=== PATIENT | male | born 1980 | race Caucasian/White ===

== ENCOUNTER 2018-08-15 23:07 | Emergency (ER) | payer BC ==
--- NOTE | 2018-08-16 00:14 | EDM.PDOC ---
ED HPI GENERAL MEDICAL PROBLEM - General Chief Complaint: Respiratory Problem Stated Complaint: SHORTNESS OF BREATH Time Seen by Provider: 08/16/18 00:04 - History of Present Illness INITIAL COMMENTS - FREE TEXT/NARRATIVE: HISTORY AND PHYSICAL: History of present illness: The patient is a 38-year-old male who says that he does Vape and has no cardiac or pulmonary history and no GI history who presents with a one and one half week history of episodic shortness of breath. He says that he does not have a cough fever chills chest pain or abdominal pain but says that these episodes usually are triggered when he is eating food. Is not any particular food but it only happens after he eats. He does not cough up any phlegm and he was seen in the clinic on , 2 days ago, and had a full lab workup including CBC CMP TSH and troponin and a chest x-ray all of which was negative. The patient was started on started on medications and did relate to the provider at the time that he did have a history of anxiety when he was in his teens and thought maybe this was anxiety driven. An episode happened this evening very similar to all prior ones and he said he took an Ativan and on arrival here he was tachycardic and was having symptoms but in the weight to be seen by me symptoms have completely resolved. Review of systems: As per history of present illness and below otherwise all systems reviewed and negative. Past medical history: As per history of present illness and as reviewed below otherwise noncontributory. Surgical history: As per history of present illness and as reviewed below otherwise noncontributory. Social history: No reported history of drug or alcohol abuse. Family history: As per history of present illness and as reviewed below otherwise noncontributory. Physical exam: General: Well-developed well-nourished mildly overweight man who is nontoxic and vital signs are noted by me. HEENT: Atraumatic, normocephalic, negative for conjunctival pallor or scleral icterus, mucous membranes moist, throat clear, neck supple, nontender, trachea midline. Lungs: Clear to auscultation, breath sounds equal bilaterally, chest nontender. Heart: S1S2, regular rate and rhythm on my evaluation and no overt murmurs, negative for clicks, rubs, or JVD. Abdomen: Soft, nondistended, a minimal amount of epigastric tenderness on deep palpation without rebound or guarding. Negative for masses or hepatosplenomegaly. Negative for costovertebral tenderness. Pelvis: Stable nontender. Genitourinary: Deferred. Rectal: Deferred. Extremities: Atraumatic, negative for cords or calf pain. Neurovascular unremarkable. Neuro: Awake, alert, oriented. Cranial nerves II through XII unremarkable. Cerebellum unremarkable. Motor and sensory unremarkable throughout. Exam nonfocal. Diagnostics: EKG CBC CMP lipase troponin H. pylori Therapeutics: I discussed with the patient that I would be limited here in further evaluation and could repeat some labs and also add on a lipase and H. pylori. As he is asymptomatic I will not give him any medications. He seems somewhat frustrated but is aware of our limitations here and the need for further workup as an outpatient potentially with pulmonary function tests endoscopy and/or other GI workup. Patient and are of aware of all testing results and need for follow-up in the clinic. I've advised him on reasons to return as well as to start a symptom journal and they state understanding. The patient's initial heart rate on arrival was slightly tachycardic on my evaluation it had normalized. Impression: Episodic dyspnea subacute stable etiology unclear Definitive disposition and diagnosis as appropriate pending reevaluation and review of above. - Related Data Allergies Allergy/AdvReac Type Severity Reaction Status Date / Time No Known Allergies Allergy Verified 08/15/18 23:12 Home Meds: Home Meds Finasteride 1 tab PO DAILY 08/15/18 [History] LORazepam [Ativan] 0.5 mg PO ASDIRECTED 08/15/18 [History] Pantoprazole Sodium [Protonix] 20 mg PO DAILY 08/15/18 [History] Sertraline HCl 1 tab PO DAILY 08/15/18 [History] Past Medical History HEENT History: Reports: None Cardiovascular History: Reports: None Respiratory History: Reports: None Gastrointestinal History: Reports: None Genitourinary History: Reports: None Musculoskeletal History: Reports: None Neurological History: Reports: None Psychiatric History: Reports: Anxiety Endocrine/Metabolic History: Reports: None Hematologic History: Reports: None Immunologic History: Reports: None Oncologic (Cancer) History: Reports: None Dermatologic History: Reports: None - Infectious Disease History Infectious Disease History: Reports: Chicken Pox - Past Surgical History Head Surgeries/Procedures: Reports: None Social & Family History - Tobacco Use Smoking Status *Q: Current Every Day Smoker Years of Tobacco use: 23 Packs/Tins Daily: 0 - Recreational Drug Use Recreational Drug Use: No ED ROS GENERAL - Review of Systems Review Of Systems: ROS reveals no pertinent complaints other than HPI. ED EXAM, GENERAL - Physical Exam Exam: See Below (See dictation) Course - Vital Signs Last Recorded V/S: Last Vital Signs Temp 36.3 C 08/15/18 23:08 Pulse 71 08/16/18 00:36 Resp 20 08/16/18 00:36 BP 120/80 08/16/18 00:36 Pulse Ox 96 08/16/18 00:36 - Orders/Labs/Meds Orders: Active Orders 24 hr Category Date Time Status EKG 12 Lead [EKG Documentation Completion] [RC] STAT Care 08/15/18 23:28 Active Labs: Laboratory Tests 08/15/18 08/15/18 08/15/18 Range/Units 23:16 23:16 23:16 WBC 9.31 (4.0-11.0) K/uL RBC 4.79 (4.50-5.90) M/uL Hgb 15.0 (13.0-17.0) g/dL Hct 42.5 (38.0-50.0) % MCV 88.7 (80.0-98.0) fL MCH 31.3 (27.0-32.0) pg MCHC 35.3 (31.0-37.0) g/dL RDW Std Deviation 38.8 (28.0-62.0) fl RDW Coeff of Christophe 12 (11.0-15.0) % Plt Count 226 (150-400) K/uL MPV 9.70 (7.40-12.00) fL Neut % (Auto) 48.3 (48.0-80.0) % Lymph % (Auto) 39.5 (16.0-40.0) % [place] % (Auto) 9.3 (0.0-15.0) % Eos % (Auto) 2.7 (0.0-7.0) % Baso % (Auto) 0.2 (0.0-1.5) % Neut # (Auto) 4.5 (1.4-5.7) K/uL Lymph # (Auto) 3.7 H (0.6-2.4) K/uL [place] # (Auto) 0.9 H (0.0-0.8) K/uL Eos # (Auto) 0.3 (0.0-0.7) K/uL Baso # (Auto) 0.0 (0.0-0.1) K/uL Nucleated RBC % 0.0 /100WBC Nucleated RBCs # 0 K/uL Sodium 139 (136-148) mmol/L Potassium 3.7 (3.5-5.1) mmol/L Chloride 104 (98-107) mmol/L Carbon Dioxide 25.4 (21.0-32.0) mmol/L BUN 16 (7.0-18.0) mg/dL Creatinine 1.0 (0.8-1.3) mg/dL Est Cr Clr Drug Dosing 93.64 mL/min Estimated GFR (MDRD) > 60.0 ml/min Glucose 105 (74-106) mg/dL Calcium 9.3 (8.5-10.1) mg/dL Total Bilirubin 0.3 (0.2-1.0) mg/dL AST 25 (15-37) IU/L ALT 61 (14-63) IU/L Alkaline Phosphatase 143 H (46-116) U/L Troponin I < 0.050 (0.000-0.056) ng/mL Total Protein 7.6 (6.4-8.2) g/dL Albumin 4.1 (3.4-5.0) g/dL Globulin 3.5 (2.6-4.0) g/dL Albumin/Globulin Ratio 1.2 (0.9-1.6) Lipase 182 (73-393) U/L H. pylori IgG Antibody NEGATIVE (NEG) Departure - Departure Time of Disposition: 01:23 Disposition: Home, Self-Care 01 Condition: Good Clinical Impression: Dyspnea Qualifiers: Dyspnea type: unspecified Qualified Code(s): R06.00 - Dyspnea, unspecified - Discharge Information Referrals: PCP,None [Primary Care Provider] - Forms: ED Department Discharge Additional Instructions: The following information is given to patients seen in the emergency department who are being discharged to home. This information is to outline your options for follow-up care. We provide all patients seen in our emergency department with a follow-up referral. The need for follow-up, as well as the timing and circumstances, are variable depending upon the specifics of your emergency department visit. If you don't have a primary care physician on staff, we will provide you with a referral. We always advise you to contact your personal physician following an emergency department visit to inform them of the circumstance of the visit and for follow-up with them and/or the need for any referrals to a consulting specialist. The emergency department will also refer you to a specialist when appropriate. This referral assures that you have the opportunity for followup care with a specialist. All of these measure are taken in an effort to provide you with optimal care, which includes your followup. Under all circumstances we always encourage you to contact your private physician who remains a resource for coordinating your care. When calling for followup care, please make the office aware that this follow-up is from your recent emergency room visit. If for any reason you are refused follow-up, please contact the [facility] emergency department at and ask to speak to the emergency department charge nurse. [facility] Primary care- Internal [place] [address] Please start keeping a symptom journal as we discussed to help assist her provider in the clinic to further decide upon testing going forward. Please eat a low-fat bland diet and push hydration and avoid caffeinated products until you 're followed up in the clinic. Return to ER as needed and as discussed
[2018-08-16 00:29] LABS: CHLORIDE,CL 104 mmol/L (98-107); SODIUM,NA 139 mmol/L (136-148)
== END 2018-08-16 01:38 | disposition home or self-care (01) ==
LOC: MW.ED 23:07
DX: R06.02 Shortness of breath (principal); F17.210 Nicotine dependence, cigarettes, uncomplicated; Z79.899 Other long term (current) drug therapy
CPT/HCPCS: 80053; 83690; 84484; 85025; 86677; 93005; 99285-25

== ENCOUNTER 2021-02-21 09:46 | Day surgery (SDC) | payer BC ==
[2021-02-21] MEDS ORDERED: Lactated Ringers 1,000 ML IV SCH (10:00)
--- NOTE | 2021-02-21 10:39 | PCM.PREANE ---
Preanesthetic Assessment - Procedure Proposed Procedure: EGD - Anesthesia/Transfusion/Family Hx Anesthesia History: No Prior Anesthesia Family History of Anesthesia Reaction: No Transfusion History: No Prior Transfusion(s) - Review of Systems General: No Symptoms Pulmonary: No Symptoms (Vapes) Cardiovascular: No Symptoms Gastrointestinal: No Symptoms (GERD well controlled) Neurological: No Symptoms Other: Reports: None - Physical Assessment NPO Status Date: 02/20/21 NPO Status Time: 22:30 Vital Signs: Last Vital Signs Temp 97.5 F 02/21/21 10:09 Pulse 89 02/21/21 10:09 Resp 16 02/21/21 10:09 BP 143/89 H 02/21/21 10:09 Pulse Ox 93 L 02/21/21 10:09 Height: 5 ft 7 in Weight: 121.109 kg (Morbid obesity) ASA Class: 3 Mental Status: Alert & Oriented x3 Airway Class: Mallampati = 2 Dentition: Reports: Normal Dentition Thyro-Mental Finger Breadths: 3 Mouth Opening Finger Breadths: 3 ROM/Head Extension: Full Lungs: Clear to Auscultation, Normal Respiratory Effort Cardiovascular: Regular Rate, Regular Rhythm - Allergies Allergies/Adverse Reactions: Allergies Allergy/AdvReac Type Severity Reaction Status Date / Time No Known Allergies Allergy Verified 02/21/21 10:10 - Acknowledgements Anesthesia Type Planned: General Anesthesia Pt an Appropriate Candidate for the Planned Anesthesia: Yes Alternatives and Risks of Anesthesia Discussed w Pt/Guardian: Yes Pt/Guardian Understands and Agrees with Anesthesia Plan: Yes PreAnesthesia Questionnaire - Past Health History Medical/Surgical History: Denies Medical/Surgical History HEENT History: Reports: None Cardiovascular History: Reports: Arrhythmia, Other (See Below) Other Cardiovascular History: hx tachycardia Respiratory History: Reports: None Gastrointestinal History: Reports: GERD Genitourinary History: Reports: None Musculoskeletal History: Reports: Back Pain, Chronic Neurological History: Reports: Migraines Psychiatric History: Reports: Anxiety, Depression Endocrine/Metabolic History: Reports: Obesity/BMI 30+ Hematologic History: Reports: Other (See Below) Other Hematologic History: vitamin D deficiency Immunologic History: Reports: None Oncologic (Cancer) History: Reports: None Dermatologic History: Reports: None - Infectious Disease History Infectious Disease History: Reports: Chicken Pox - Past Surgical History Head Surgeries/Procedures: Reports: None HEENT Surgical History: Reports: None Cardiovascular Surgical History: Reports: None Respiratory Surgical History: Reports: None GI Surgical History: Reports: None Male Surgical History: Reports: None Endocrine Surgical History: Reports: None Neurological Surgical History: Reports: None Musculoskeletal Surgical History: Reports: None Oncologic Surgical History: Reports: None Dermatological Surgical History: Reports: None - SUBSTANCE USE Tobacco Use Within Last Twelve Months: Vaping - HOME MEDS Home Medications: Home Meds LORazepam [Ativan] 1 mg PO TID PRN 08/15/18 [History] Pantoprazole Sodium [Protonix] 20 mg PO DAILY 08/15/18 [History] Diclofenac Sodium 50 mg PO BID PRN 02/15/21 [History] Ergocalciferol (Vitamin D2) [Vitamin D2] 50,000 units PO ASDIRECTED 02/15/21 [History] Propranolol HCl 20 mg PO DAILY 02/15/21 [History] SUMAtriptan succinate [Imitrex] 50 mg PO ASDIRECTED PRN 02/15/21 [History] Testosterone Cypionate [Testone Cik] 2 ml IM ASDIRECTED 02/15/21 [History] - CURRENT (IN HOUSE) MEDS Current Meds: Current Medications Lactated Ringer's (Ringers, Lactated) 1,000 mls @ 125 mls/hr IV ASDIRECTED JAMES
[2021-02-21] MEDS ORDERED: fentaNYL 100 MCG/2 ML SDV ONE (11:18)
[2021-02-21] MEDS ORDERED: Propofol 200 MG/20 ML SDV ONE (11:18)
[2021-02-21] MEDS ORDERED: Benzocaine 20% Topical Spray UD ONE (11:30)
--- NOTE | 2021-02-21 11:56 | PCM.POSTAN ---
POST ANESTHESIA ASSESSMENT - MENTAL STATUS Mental Status: Somnolent - VITAL SIGNS Vital Signs: Last Vital Signs Temp 97.5 F 02/21/21 10:09 Pulse 89 02/21/21 10:09 Resp 16 02/21/21 10:09 BP 143/89 H 02/21/21 10:09 Pulse Ox 93 L 02/21/21 10:09 - RESPIRATORY Respiratory Status: Respiratory Rate WNL, Airway Patent, O2 Saturation Stable - CARDIOVASCULAR CV Status: Pulse Rate WNL, Blood Pressure Stable - GASTROINTESTINAL GI Status: No Symptoms - PAIN Free Text/Narrative:: EGD - POST OP HYDRATION Hydration Status: Adequate & Stable
--- NOTE | 2021-02-21 11:57 | PCM.OPNOTE ---
- General Post-Op/Procedure Note Date of Surgery/Procedure: 02/21/21 Operative Procedure(s): EGD with Biopsies Findings: Gastritis dictation number [id number] Pre Op Diagnosis: Chronic epigastric pain Post-Op Diagnosis: Gastritis Anesthesia Technique: [facility] Primary Surgeon: Oumar Bautista Pathology: biopsies Complications: None Condition: Good
--- NOTE | 2021-02-21 11:58 | PCM48HPAN ---
Post Anesthesia Note - EVALUATION WITHIN 48HRS OF ANESTHETIC Vital Signs in Normal Range: Yes Patient Participated in Evaluation: Yes Respiratory Function Stable: Yes Airway Patent: Yes Cardiovascular Function Stable: Yes Hydration Status Stable: Yes Pain Control Satisfactory: Yes Nausea and Vomiting Control Satisfactory: Yes Mental Status Recovered: Yes Vital Signs: Last Vital Signs Temp 98.6 F 02/21/21 11:50 Pulse 87 02/21/21 11:55 Resp 8 L 02/21/21 11:55 BP 111/75 02/21/21 11:55 Pulse Ox 95 02/21/21 11:55 - COMMENTS/OBSERVATIONS Free Text/Narrative:: Pt doing well post-op. VSS. No apparent anesthetic complications. Dr. Dallas Acuña
--- NOTE | 2021-02-21 15:26 | OR ---
SURGEON: DAKOTAH STEVENSON MD DATE OF PROCEDURE: 02/21/2021 PREOPERATIVE DIAGNOSES: 1. Epigastric pain. 2. History of gastroesophageal reflux disease. POSTOPERATIVE DIAGNOSIS: Gastritis. PRIMARY SURGEON: Dakotah Stevenson MD ANESTHESIA: With Anesthesiology. EXTENT OF THE EGD: To the duodenum. SPECIMENS: Biopsies. COMPLICATIONS: None. REASON FOR PROCEDURE: Patient is a pleasant 41-year-old gentleman. He has had heartburn issues last 10 years. He said he was on Protonix that seemed to help greatly, he got occasional breakthrough heartburn. He does occasionally get some esophageal spasming. It happens about twice a week. He denies ever having an EGD before. He denies any issues with swallowing or any symptoms other than his throat swells occasionally. His epigastric pain is worse with spaghetti sauce and orange juice. PROCEDURE IN DETAIL: Physical examination was performed. The major risks and benefits associated with the procedure were explained to the patient in detail. The patient verbalized understanding and agreement of the same. The patient was then connected to the appropriate monitoring devices and IV started. EKG, pulse, pulse oximetry, blood pressure, and capnography were monitored throughout the entire procedure. Continuous oxygen and sedation were provided by the anesthesiologist. After a time-out was performed, upper endoscope was advanced under direct visualization without difficulty in the upper GI tract. The anatomy and mucosa of the esophagus, GE junction, stomach, pylorus, and duodenum were inspected. Duodenum appeared normal. Scope was brought up to the stomach. Both retrograde and antegrade views of the stomach were done. Patient did have gastritis, with more irritation at the antrum, pylorus area. Did do several biopsies of the area to check for H pylori. No stomach ulcers were seen. Scope was brought up to the GE junction. GE junction was approximately 40 cm from incisor. He did have a good Z-line. Scope was brought into the stomach. The stomach was desufflated. Scope was brought up to the esophagus. Esophagus appeared normal. Scope was completely removed and procedure was terminated. ENDOSCOPIC DIAGNOSIS: Gastritis. RECOMMENDATIONS: Patient should continue his PPI. Patient may follow up in clinic to go over his pathology. Patient may need further workup such as manometry to further diagnose his esophageal spasming. REE / LIZ /[id number]
== END 2021-02-21 12:25 | disposition home or self-care (01) ==
LOC: MW.SDS 09:46
PROVIDERS: ATTEND Surgery
DX: K31.89 Other diseases of stomach and duodenum (principal); K29.70 Gastritis, unspecified, without bleeding; K21.9 Gastro-esophageal reflux disease without esophagitis; F41.9 Anxiety disorder, unspecified; G43.909 Migraine, unspecified, not intractable, without status migrainosus; E55.9 Vitamin D deficiency, unspecified; I10 Essential (primary) hypertension; E66.9 Obesity, unspecified; Z79.899 Other long term (current) drug therapy; Z98.890 Other specified postprocedural states; Z87.891 Personal history of nicotine dependence; Z68.41 Body mass index [BMI] 40.0-44.9, adult
CPT/HCPCS: 43239; A9270; J2704; J3010; J7120; 00731

== ENCOUNTER 2022-06-29 21:58 | Emergency (ER) | payer BC ==
[2022-06-29] MEDS ORDERED: Norepinephrine Bit/D5W Premix 250 ML IV SCH (22:00)
[2022-06-29] MEDS ORDERED: Sodium Chloride 0.9% 10 ML Syringe FLUSH PRN (22:03)
[2022-06-29] MEDS ORDERED: Sodium Chloride 0.9% 2.5 ML Syringe FLUSH PRN (22:03)
[2022-06-29] MEDS ORDERED: Sodium Bicarbonate 8.4% 50 MEQ/50 ML Syringe IVPUSH ONE ×2 (22:09→22:10)
[2022-06-29] MEDS ORDERED: Calcium Gluconate 10% 1 GM/10 ML SDV IVPUSH ONE (22:11)
[2022-06-29] MEDS ORDERED: LORazepam 2 MG/ML SDV IVPUSH ONE (22:15)
[2022-06-29] MEDS: LORazepam 2 MG/ML SDV ONE ×2 (22:16→22:18)
[2022-06-29] MEDS ORDERED: Sodium Chloride 0.9% 1,000 ML IV ONE (22:30)
[2022-06-29 22:33] LABS: ACETAMINOPHEN <2.0 ug/mL; BLOOD UREA NITROGEN,BUN 5 mg/dL (7.0-18.0); CARBON DIOXIDE,CO2 20.6 mmol/L (21.0-32.0); CHLORIDE,CL 101 mmol/L (98-107); GLUCOSE RANDOM 115 mg/dL (74-106); POTASSIUM,K 3.9 mmol/L (3.5-5.1); SODIUM,NA 141 mmol/L (136-148)
[2022-06-29 22:34] LABS: ESTIMATED GFR 109 mL/min (>60)
[2022-06-29] MEDS ORDERED: Magnesium Sulfate/Water 4 GM in Premix Bag 1 BAG IV ONE (22:51)
[2022-06-30] MEDS ORDERED: LORazepam 2 MG/ML SDV IVPUSH ONE (00:35)
[2022-06-30 01:43] LABS: BLOOD UREA NITROGEN,BUN 6 mg/dL (7.0-18.0); CARBON DIOXIDE,CO2 26.8 mmol/L (21.0-32.0); CHLORIDE,CL 104 mmol/L (98-107); ESTIMATED GFR 113 mL/min (>60); GLUCOSE RANDOM 115 mg/dL (74-106); POTASSIUM,K 3.5 mmol/L (3.5-5.1); SODIUM,NA 143 mmol/L (136-148)
== END 2022-06-30 06:38 | disposition home or self-care (01) ==
LOC: MW.ED 21:58
DX: T44.7X2A Poisoning by beta-adrenoreceptor antagonists, intentional self-harm, initial encounter (principal); K21.9 Gastro-esophageal reflux disease without esophagitis; E66.9 Obesity, unspecified; Z68.35 Body mass index [BMI] 35.0-35.9, adult; Z79.899 Other long term (current) drug therapy; Z20.822 Contact with and (suspected) exposure to COVID-19
CPT/HCPCS: 36415; 80048; 80053; 80143; 80179; 80305; 80307; 83735; 85025; 87635; 93005; 96365; 96366; 96375; 96376; 99285; J0612; J2060; J3475; J3490; J7030; 93010; 99291; U0002

== ENCOUNTER 2023-03-12 15:38 | Inpatient (IN) | payer BC ==
[2023-03-12] MEDS ORDERED: Midazolam 5 MG/ML SDV IM ONE (15:40)
[2023-03-12] MEDS ORDERED: Ketamine 500 mg/10 ML MDV IV ONE ×2 (15:59→16:07)
[2023-03-12] MEDS: Ketamine 500 mg/10 ML MDV IV ONE ×2 (15:59→16:07)
[2023-03-12 16:08] LABS: BASOPHILS PERCENT AUTO 0.7 % (0.0-1.0); EOSINOPHILS ABSOLUTE AUTO 0.14 K/uL (0.00-0.45); HEMATOCRIT 45.8 % (42.0-52.0); HEMOGLOBIN 16.1 g/dL (14.0-18.0); IMMATURE GRAN ABSOLUTE AUTO 0.13 K/uL (0.00-0.05); IMMATURE GRAN PERCENT AUTO 0.9 % (0.0-0.4); LYMPHOCYTES ABSOLUTE AUTO 3.63 K/uL (1.00-4.80); LYMPHOCYTES PERCENT AUTO 26.1 % (24.0-44.0); MEAN CORPUSCULAR HEMOGLOBIN 31.1 pg (28.0-32.0); MEAN CORPUSCULAR HGB CONC 35.2 g/dL (32.0-36.0); MEAN CORPUSCULAR VOLUME 88.4 fL (83.0-99.0); MEAN PLATELET VOLUME 9.3 fL (9.4-12.4); MONOCYTES ABSOLUTE AUTO 1.16 K/uL (0.00-0.80); MONOCYTES PERCENT AUTO 8.3 % (0.0-8.0); NEUTROPHILS ABSOLUTE AUTO 8.77 K/uL (1.80-7.70); PLATELET COUNT,PLT 265 K/uL (150-400); RED BLOOD CELL COUNT 5.18 M/uL (4.52-5.90); WHITE BLOOD CELL COUNT,WBC 13.93 K/uL (3.9-11.3)
[2023-03-12] MEDS ORDERED: Rocuronium 50 MG/5 ML Vial IVPUSH ONE (16:17)
[2023-03-12] MEDS: Lactated Ringers 1,000 ML IV SCH ×2 (16:17→22:00)
[2023-03-12] MEDS ORDERED: propofoL 100 ML ONE (16:21)
[2023-03-12] MEDS: propofoL 100 ML IV SCH ×2 (16:24→22:39)
[2023-03-12] MEDS ORDERED: HYDROmorphone 1 MG/ML Syringe IVPUSH ONE ×2 (16:25→17:17)
[2023-03-12 16:33] LABS: APPEARANCE,URINE CLEAR; BILIRUBIN,URINE NEGATIVE (NEGATIVE); COLOR,URINE YELLOW; GLUCOSE,URINE NEGATIVE (NEGATIVE); KETONES,URINE NEGATIVE (NEGATIVE); LEUKOCYTE ESTERASE,URINE NEGATIVE (NEGATIVE); NITRITE,URINE NEGATIVE (NEGATIVE); OCCULT BLOOD,URINE LARGE (NEGATIVE); PROTEIN,URINE NEGATIVE (NEGATIVE); UROBILINOGEN,URINE 0.2 EU/dL (<2.0)
[2023-03-12] MEDS ORDERED: Iopamidol 755 MG/ML 500 ML Multipack Bottle IVPUSH STA (16:40)
[2023-03-12 16:43] LABS: AMPHETAMINES SCREEN, URINE NEGATIVE (CUTOFF=500); BARBITURATE SCREEN,URINE NEGATIVE (CUTOFF=200); BENZODIAZEPINES SCREEN,URINE PRESUMPTIVE POSITIVE (CUTOFF=150); BUPRENORPHINE SCREEN,URINE NEGATIVE (CUTOFF=10); METHADONE SCREEN, URINE NEGATIVE (CUTOFF=200); METHAMPHETAMINES SCREEN, URINE NEGATIVE (CUTOFF=500); OXYCODONE SCREEN,URINE NEGATIVE (CUT0FF=100); PCP SCREEN,URINE NEGATIVE (CUTOFF=25); THC SCREEN,URINE 20 NG/ML NEGATIVE (CUTOFF=50)
[2023-03-12 16:47] LABS: ACETAMINOPHEN <2.0 ug/mL; ALANINE AMINOTRANSFERASE,ALT 57 IU/L (14-63); ALBUMIN 3.7 g/dL (3.4-5.0); ALKALINE PHOSPHATASE 113 U/L (46-116); ASPARTATE AMNIOTRANSFERASE,AST 24 IU/L (15-37); BILIRUBIN TOTAL 0.2 mg/dL (0.2-1.0); BLOOD UREA NITROGEN,BUN 9 mg/dL (7.0-18.0); CALCIUM 8.7 mg/dL (8.5-10.1); CHLORIDE,CL 105 mmol/L (98-107); CREATININE 1.7 mg/dL (0.8-1.3); EST CRCL DRUG DOSING (CG) 65.14 mL/min; ESTIMATED GFR 51 mL/min (>60); ETHANOL BLOOD MEDICAL 202 mg/dL; GLUCOSE RANDOM 108 mg/dL (74-106); MAGNESIUM 1.9 mg/dL (1.8-2.4); POTASSIUM,K 4.3 mmol/L (3.5-5.1); PROTEIN TOTAL,TP 7.3 g/dL (6.4-8.2); SALICYLATE 1.5 mg/dL (0.0-20.0); SODIUM,NA 144 mmol/L (136-148); TSH ULTRASENSITIVE 1.07 uIU/mL (0.36-3.74)
[2023-03-12 16:55] LABS: BACTERIA,URINE NOT SEEN (NEGATIVE); EPITHELIAL CELLS,URINE FEW (NONE-FEW); WBC,URINE NONE SEEN (0-5/HPF)
[2023-03-12 17:28] LABS: BASE EXCESS VENOUS -1.2 (-2.0-3.0); PH,VENOUS 7.33 (7.31-7.41)
[2023-03-12] MEDS ORDERED: Propofol 200 MG/20 ML SDV ONE ×3 (17:28→20:29)
[2023-03-12] MEDS ORDERED: Propofol 200 MG/20 ML SDV IVPUSH ONE (17:38)
[2023-03-12] MEDS ORDERED: ceFAZolin 2 GM in Sodium Chloride 0.9% 50 ML IV ONE (17:40)
[2023-03-12] MEDS ORDERED: Diphtheria,Pertussis(Acell),Tetanus Vaccine 0.5 ML Syringe IM ONE (17:40)
[2023-03-12] MEDS ORDERED: droPERidol 5 MG/2 ML SDV IVPUSH PRN (18:30)
[2023-03-12] MEDS ORDERED: HYDROmorphone 1 MG/ML Syringe IVPUSH PRN (18:30)
[2023-03-12] MEDS ORDERED: Naloxone 0.4 MG/ML SDV IVPUSH PRN (18:30)
[2023-03-12] MEDS ORDERED: Ondansetron 4 MG/2 ML SDV IVPUSH PRN (18:30)
[2023-03-12] MEDS ORDERED: Morphine 2 MG/ML SYRINGE IVPUSH PRN (18:30)
[2023-03-12] MEDS ORDERED: fentaNYL 50 MCG/ML SDV IVPUSH PRN (18:30)
[2023-03-12] MEDS ORDERED: Metoclopramide 10 MG/2 ML SDV IVPUSH PRN (18:30)
[2023-03-12] MEDS ORDERED: Albuterol 0.083% 2.5 MG/3 ML Neb Soln NEB PRN (18:30)
[2023-03-12] MEDS ORDERED: Magnesium Sulfate (4.06 MEQ/ML) 5 GM/10 ML SDV ONE (19:14)
[2023-03-12] MEDS ORDERED: Bupivacaine 0.5% 30 ML SDV ONE (19:22)
[2023-03-12] MEDS ORDERED: Rocuronium Bromide 50 MG/5 ML Syringe ONE ×2 (19:56→19:57)
[2023-03-12] MEDS ORDERED: dexmedeTOMIDine HCl 200 MCG/2 ML SDV ONE (19:57)
[2023-03-12] MEDS ORDERED: Acetaminophen/HYDROcodone 325-5 MG Tab PO PRN (21:37)
[2023-03-12] MEDS: fentaNYL/Normal Saline 2,500 MCG in Premix Bag 1 BAG IV PRN (22:25)
[2023-03-12] MEDS: fentaNYL/Normal Saline 250 ML ONE (22:50)
[2023-03-12] MEDS: Pantoprazole 40 MG in Sodium Chloride 0.9% 10 ML IVPUSH SCH (22:59)
[2023-03-13] MEDS: propofoL 100 ML IV SCH ×13 (00:07→23:10)
[2023-03-13] MEDS: ceFAZolin 2 GM in Sodium Chloride 0.9% 50 ML IV SCH ×3 (02:00→17:17)
[2023-03-13] MEDS: fentaNYL/Normal Saline 250 ML ONE (02:12)
[2023-03-13] MEDS: Lactated Ringers 1,000 ML IV SCH ×4 (06:02→22:19)
[2023-03-13 06:13] LABS: BASOPHILS ABSOLUTE AUTO 0.04 K/uL (0.00-0.20); BASOPHILS PERCENT AUTO 0.3 % (0.0-1.0); EOSINOPHILS ABSOLUTE AUTO 0.02 K/uL (0.00-0.45); EOSINOPHILS PERCENT AUTO 0.1 % (0.0-6.0); HEMATOCRIT 38.6 % (42.0-52.0); HEMOGLOBIN 13.4 g/dL (14.0-18.0); IMMATURE GRAN ABSOLUTE AUTO 0.06 K/uL (0.00-0.05); IMMATURE GRAN PERCENT AUTO 0.4 % (0.0-0.4); LYMPHOCYTES ABSOLUTE AUTO 2.12 K/uL (1.00-4.80); LYMPHOCYTES PERCENT AUTO 14.8 % (24.0-44.0); MEAN CORPUSCULAR HEMOGLOBIN 31.4 pg (28.0-32.0); MEAN CORPUSCULAR HGB CONC 34.7 g/dL (32.0-36.0); MEAN CORPUSCULAR VOLUME 90.4 fL (83.0-99.0); MEAN PLATELET VOLUME 9.4 fL (9.4-12.4); MONOCYTES ABSOLUTE AUTO 1.01 K/uL (0.00-0.80); MONOCYTES PERCENT AUTO 7.1 % (0.0-8.0); NEUTROPHILS ABSOLUTE AUTO 11.05 K/uL (1.80-7.70); NEUTROPHILS PERCENT AUTO 77.3 % (41.0-71.0); PLATELET COUNT,PLT 224 K/uL (150-400); RED BLOOD CELL COUNT 4.27 M/uL (4.52-5.90)
[2023-03-13 06:45] LABS: CALCIUM 7.7 mg/dL (8.5-10.1); CARBON DIOXIDE,CO2 28.1 mmol/L (21.0-32.0); CREATININE 1.2 mg/dL (0.8-1.3); EST CRCL DRUG DOSING (CG) 92.28 mL/min; POTASSIUM,K 4.3 mmol/L (3.5-5.1)
[2023-03-13] MEDS: Pantoprazole 40 MG in Sodium Chloride 0.9% 10 ML IVPUSH SCH (09:03)
[2023-03-13] MEDS: Ketamine 500 mg/10 ML MDV IV ONE ×2 (09:14→09:19)
[2023-03-13] MEDS: Thiamine 200 MG/2 ML MDV IVPUSH SCH (13:05)
[2023-03-13] MEDS: Folic Acid 1 MG/0.2 ML UD Syringe IV SCH (13:05)
[2023-03-13] MEDS ORDERED: Acetaminophen 325 MG Tab PO PRN (17:25)
[2023-03-13] MEDS ORDERED: Acetaminophen 325 MG/10.15 ML ML GTUBE PRN (17:44)
[2023-03-13] MEDS: fentaNYL/Normal Saline 2,500 MCG in Premix Bag 1 BAG IV PRN (23:11)
[2023-03-14] MEDS: Piperacillin/Tazobactam 4.5 GM in Sodium Chloride 0.9% 100 ML IV SCH ×3 (00:58→16:03)
[2023-03-14] MEDS: propofoL 100 ML IV SCH ×3 (01:10→05:55)
[2023-03-14] MEDS: Doxycycline 100 MG in Sodium Chloride 0.9% 100 ML IV SCH ×2 (01:35→12:04)
[2023-03-14 05:44] LABS: BASOPHILS ABSOLUTE AUTO 0.03 K/uL (0.00-0.20); BASOPHILS PERCENT AUTO 0.3 % (0.0-1.0); EOSINOPHILS ABSOLUTE AUTO 0.17 K/uL (0.00-0.45); EOSINOPHILS PERCENT AUTO 1.7 % (0.0-6.0); HEMATOCRIT 37.3 % (42.0-52.0); HEMOGLOBIN 12.8 g/dL (14.0-18.0); IMMATURE GRAN ABSOLUTE AUTO 0.03 K/uL (0.00-0.05); IMMATURE GRAN PERCENT AUTO 0.3 % (0.0-0.4); LYMPHOCYTES ABSOLUTE AUTO 1.79 K/uL (1.00-4.80); LYMPHOCYTES PERCENT AUTO 17.8 % (24.0-44.0); MEAN CORPUSCULAR HEMOGLOBIN 31.4 pg (28.0-32.0); MEAN CORPUSCULAR HGB CONC 34.3 g/dL (32.0-36.0); MEAN CORPUSCULAR VOLUME 91.4 fL (83.0-99.0); MEAN PLATELET VOLUME 9.8 fL (9.4-12.4); MONOCYTES ABSOLUTE AUTO 0.65 K/uL (0.00-0.80); MONOCYTES PERCENT AUTO 6.5 % (0.0-8.0); NEUTROPHILS ABSOLUTE AUTO 7.37 K/uL (1.80-7.70); NEUTROPHILS PERCENT AUTO 73.4 % (41.0-71.0); PLATELET COUNT,PLT 160 K/uL (150-400); RED BLOOD CELL COUNT 4.08 M/uL (4.52-5.90); WHITE BLOOD CELL COUNT,WBC 10.04 K/uL (3.9-11.3)
[2023-03-14] MEDS: Lactated Ringers 1,000 ML IV SCH (05:57)
[2023-03-14 06:11] LABS: A/G RATIO 0.8 (0.9-1.6); ALBUMIN 2.5 g/dL (3.4-5.0); BILIRUBIN TOTAL 0.7 mg/dL (0.2-1.0); CALCIUM 7.6 mg/dL (8.5-10.1); CARBON DIOXIDE,CO2 27.8 mmol/L (21.0-32.0); CREATININE 0.9 mg/dL (0.8-1.3); EST CRCL DRUG DOSING (CG) 123.05 mL/min; POTASSIUM,K 3.7 mmol/L (3.5-5.1); PROTEIN TOTAL,TP 5.6 g/dL (6.4-8.2)
[2023-03-14] MEDS: Pantoprazole 40 MG in Sodium Chloride 0.9% 10 ML IVPUSH SCH (08:22)
[2023-03-14] MEDS: Thiamine 200 MG/2 ML MDV IVPUSH SCH (08:23)
[2023-03-14] MEDS: Folic Acid 1 MG/0.2 ML UD Syringe IV SCH (08:23)
[2023-03-14] MEDS ORDERED: Sodium Chloride 0.9% Inhalation Soln 3 ML Neb INH PRN (08:52)
[2023-03-14] MEDS ORDERED: Racepinephrine 2.25% 0.5 ML Neb Soln NEB ONE (08:52)
[2023-03-14] MEDS ORDERED: Dexamethasone 10 MG/ML SDV IVPUSH ONE (08:53)
[2023-03-14] MEDS ORDERED: Haloperidol Lactate 5 MG/ML SDV IM ONE (12:01)
[2023-03-14] MEDS: LORazepam 2 MG/ML SDV IVPUSH PRN ×3 (12:04→19:46)
[2023-03-15] MEDS: Doxycycline 100 MG in Sodium Chloride 0.9% 100 ML IV SCH ×2 (00:35→14:16)
[2023-03-15] MEDS: LORazepam 2 MG/ML SDV IVPUSH PRN ×5 (01:19→12:19)
[2023-03-15 07:07] LABS: BASOPHILS ABSOLUTE AUTO 0.01 K/uL (0.00-0.20); BASOPHILS PERCENT AUTO 0.1 % (0.0-1.0); HEMATOCRIT 38.2 % (42.0-52.0); HEMOGLOBIN 13.5 g/dL (14.0-18.0); IMMATURE GRAN ABSOLUTE AUTO 0.11 K/uL (0.00-0.05); IMMATURE GRAN PERCENT AUTO 0.7 % (0.0-0.4); LYMPHOCYTES ABSOLUTE AUTO 1.03 K/uL (1.00-4.80); LYMPHOCYTES PERCENT AUTO 6.8 % (24.0-44.0); MEAN CORPUSCULAR HEMOGLOBIN 30.6 pg (28.0-32.0); MEAN CORPUSCULAR HGB CONC 35.3 g/dL (32.0-36.0); MEAN CORPUSCULAR VOLUME 86.6 fL (83.0-99.0); MEAN PLATELET VOLUME 9.9 fL (9.4-12.4); MONOCYTES ABSOLUTE AUTO 0.49 K/uL (0.00-0.80); MONOCYTES PERCENT AUTO 3.2 % (0.0-8.0); NEUTROPHILS ABSOLUTE AUTO 13.54 K/uL (1.80-7.70); NEUTROPHILS PERCENT AUTO 89.2 % (41.0-71.0); PLATELET COUNT,PLT 199 K/uL (150-400); RED BLOOD CELL COUNT 4.41 M/uL (4.52-5.90); WHITE BLOOD CELL COUNT,WBC 15.18 K/uL (3.9-11.3)
[2023-03-15] MEDS ORDERED: Haloperidol 5 MG Tab PO PRN (07:43)
[2023-03-15 07:44] LABS: A/G RATIO 0.7 (0.9-1.6); ALBUMIN 2.8 g/dL (3.4-5.0); BILIRUBIN TOTAL 0.6 mg/dL (0.2-1.0); CALCIUM 8.5 mg/dL (8.5-10.1); CARBON DIOXIDE,CO2 27.3 mmol/L (21.0-32.0); CREATININE 0.7 mg/dL (0.8-1.3); EST CRCL DRUG DOSING (CG) 158.2 mL/min; MAGNESIUM 1.7 mg/dL (1.8-2.4); PHOSPHORUS 1.9 mg/dL (2.6-4.7); POTASSIUM,K 3.7 mmol/L (3.5-5.1); PROTEIN TOTAL,TP 6.6 g/dL (6.4-8.2)
[2023-03-15] MEDS ORDERED: Magnesium Sulfate/Water 2 GM in Premix Bag 1 BAG IV ONE (07:57)
[2023-03-15] MEDS ORDERED: Potassium Phosphates 3 mMole/ML 15 ML SDV IV ONE (07:57)
[2023-03-15] MEDS: Pantoprazole 40 MG in Sodium Chloride 0.9% 10 ML IVPUSH SCH (08:16)
[2023-03-15] MEDS: Piperacillin/Tazobactam 4.5 GM in Sodium Chloride 0.9% 100 ML IV SCH ×3 (08:16)
[2023-03-15] MEDS: Folic Acid 1 MG/0.2 ML UD Syringe IV SCH (08:16)
[2023-03-15] MEDS: Thiamine 200 MG/2 ML MDV IVPUSH SCH (08:16)
[2023-03-15] MEDS ORDERED: Potassium Phosphates 30 MMOLE in Sodium Chloride 0.9% 500 ML IV ONE (08:30)
[2023-03-15] MEDS ORDERED: Bisacodyl 5 MG Tab PO SCH (09:45)
[2023-03-15] MEDS ORDERED: Ketorolac 30 MG/ML SDV IVPUSH PRN (09:59)
[2023-03-15] MEDS ORDERED: Cyclobenzaprine 10 MG Tab PO PRN (09:59)
[2023-03-15] MEDS ORDERED: Enoxaparin 40 MG/0.4 ML Syringe SUBCUT SCH (10:30)
[2023-03-15 11:03] LABS: APPEARANCE,URINE CLEAR; GLUCOSE,URINE NEGATIVE (NEGATIVE); KETONES,URINE >=80 mg/dL (NEGATIVE); LEUKOCYTE ESTERASE,URINE NEGATIVE (NEGATIVE); NITRITE,URINE POSITIVE (NEGATIVE); OCCULT BLOOD,URINE SMALL (NEGATIVE); PH,URINE 6.5 (5.0-8.0); PROTEIN,URINE TRACE mg/dL (NEGATIVE); UROBILINOGEN,URINE 0.2 EU/dL (<2.0)
[2023-03-15 11:04] LABS: BILIRUBIN,URINE SMALL (NEGATIVE); COLOR,URINE DARK YELLOW
[2023-03-15 11:13] LABS: BACTERIA,URINE FEW (NEGATIVE); EPITHELIAL CELLS,URINE RARE (NONE-FEW); RBC,URINE 30-40 (0-2/HPF); WBC,URINE 0-2 (0-5/HPF)
[2023-03-15] MEDS ORDERED: propofoL 100 ML IV SCH (12:45)
[2023-03-15] MEDS ORDERED: Haloperidol Lactate 5 MG/ML SDV ONE (12:57)
[2023-03-15] MEDS ORDERED: Haloperidol Lactate 5 MG/ML SDV IM ONE (13:03)
[2023-03-15] MEDS ORDERED: Ketamine 500 mg/10 ML MDV ONE (13:17)
[2023-03-15] MEDS ORDERED: Propofol 200 MG/20 ML SDV ONE (13:18)
[2023-03-15] MEDS ORDERED: Lidocaine 2% 5 ML SDV ONE (13:19)
[2023-03-15] MEDS ORDERED: Ketamine 500 mg/10 ML MDV IV ONE (13:26)
[2023-03-15] MEDS ORDERED: Rocuronium 50 MG/5 ML Vial IVPUSH ONE (13:27)
[2023-03-15] MEDS ORDERED: Propofol 200 MG/20 ML SDV IVPUSH ONE (13:28)
[2023-03-15] MEDS: fentaNYL/Normal Saline 2,500 MCG in Premix Bag 1 BAG IV PRN (14:18)
[2023-03-15] MEDS ORDERED: Lidocaine 2% 5 ML SDV IVPUSH ONE (14:30)
[2023-03-15 16:08] LABS: CORONAVIRUS COVID-19 NAA NEGATIVE (NEGATIVE); INFLUENZA A NAA NEGATIVE (NEGATIVE); INFLUENZA B NAA NEGATIVE (NEGATIVE); RESPIRATORY SYNCYTIAL VIR NAA NEGATIVE (NEGATIVE)
[2023-03-16] MEDS ORDERED: Pantoprazole 40 MG Tab.CR PO SCH (09:00)
== END 2023-03-15 17:25 | disposition home or self-care (01) | DRG 364 ==
LOC: MW.ED 15:38 → MW.SDS 18:39 → MW.ICU 21:59
PROVIDERS: ADMIT Surgery; ATTEND Surgery
PROC: 5A1945Z Respiratory Ventilation, 24-96 Consecutive Hours (ICD-10-PCS; 2023-03-12)
PROC: 0BH17EZ Insertion of Endotracheal Airway into Trachea, Via Natural or Artificial Opening (ICD-10-PCS; 2023-03-12)
PROC: 0T9B70Z Drainage of Bladder with Drainage Device, Via Natural or Artificial Opening (ICD-10-PCS; 2023-03-12)
PROC: 3E0234Z Introduction of Serum, Toxoid and Vaccine into Muscle, Percutaneous Approach (ICD-10-PCS; 2023-03-12)
PROC: 0JQ80ZZ Repair Abdomen Subcutaneous Tissue and Fascia, Open Approach (ICD-10-PCS; principal; 2023-03-12 20:00)
PROC: 0BH17EZ Insertion of Endotracheal Airway into Trachea, Via Natural or Artificial Opening (ICD-10-PCS; 2023-03-15)
PROC: 5A1935Z Respiratory Ventilation, Less than 24 Consecutive Hours (ICD-10-PCS; 2023-03-15)
PROC: 05HF33Z Insertion of Infusion Device into Left Cephalic Vein, Percutaneous Approach (ICD-10-PCS; 2023-03-15)
DX: S31.119A Laceration without foreign body of abdominal wall, unspecified quadrant without penetration into peritoneal cavity, initial encounter (principal); F10.121 Alcohol abuse with intoxication delirium; N17.9 Acute kidney failure, unspecified; K21.9 Gastro-esophageal reflux disease without esophagitis; G89.29 Other chronic pain; M54.9 Dorsalgia, unspecified; G43.909 Migraine, unspecified, not intractable, without status migrainosus; F41.9 Anxiety disorder, unspecified; F32.A Depression, unspecified; D72.829 Elevated white blood cell count, unspecified; F29 Unspecified psychosis not due to a substance or known physiological condition; E66.9 Obesity, unspecified; R09.02 Hypoxemia; R45.1 Restlessness and agitation; F17.210 Nicotine dependence, cigarettes, uncomplicated; E83.42 Hypomagnesemia; F14.10 Cocaine abuse, uncomplicated; F13.10 Sedative, hypnotic or anxiolytic abuse, uncomplicated; Z79.899 Other long term (current) drug therapy; Z68.37 Body mass index [BMI] 37.0-37.9, adult; Z78.1 Physical restraint status; Z23 Encounter for immunization
CPT/HCPCS: 00840; 0241U; 31500; 36410; 36415; 43752-52; 51702; 71045; 71045-26; 71260; 71260-26; 74177; 74177-26; 80048; 80053; 80143; 80179; 80305-QW; 80307; 81001; 82550; 82803; 83735; 84100; 84443; 85025; 87040; 90471; 90715; 93005; 93010; 94002; 94003; 94640; 96361; 96365; 96375; 96376; 99223; 99232; 99239; 99291; A9270-GY; C9113; G0390; J0665; J0690; J1100; J1170; J1630; J2060; J2250; J2543; J2704; J3360; J3411; J3475; J3490; J7040; J7120; Q9967